=== PATIENT | male | born 1950 | race Caucasian/White ===

== ENCOUNTER 2021-11-30 19:30 | Emergency (ER) | payer MEDICARE, MEDICAID ==
[~2021-11-30 19:30] MED LIST: AMARYL 2MG TABLE2 MG PO; CARDIZEM CD120 MG PO; COUMADIN5 MG PO; COUMADIN7.5 MG PO; GLUCOPHAGE1000 MG PO; GLUCOSE4 GM PO; IPRAT-ALBUT 0.5-3 ML NEB; LANTUS SOL100 UNIT/1 SQ; LASIX40 MG PO; LIPITOR TAB 2020 MG PO; LOPRESSOR 25 MG25 MG PO; MEDROL4 MG PO; OMNICEF 300 MG300 MG PO; PREDNISONE20 MG PO; PRINIVIL10 MG PO; PROVENTIL HFA6.7 GM INH; SYMBICORT 160-1 INHA INH; VIBRAMYCIN100 MG PO
[2021-11-30 21:52] LABS: HEMOGLOBIN 12.7 gm/dl (14.0-17.5); RED BLOOD COUNT 4.53 M/UL (4.20-5.50); WHITE BLOOD COUNT 8.8 K/UL (4.5-11.0)
[2021-11-30 22:19] LABS: BUN/CREATININE RATIO 13 (0-10)
[2021-11-30] MEDS ORDERED: LASIX20 MG PO (23:17)
[2021-11-30] MEDS ORDERED: KLOR-CON M2020 MEQ PO (23:18)
== END 2021-11-30 23:21 | disposition home or self-care (01) ==
LOC: ER1 19:30
PROVIDERS: Physician Assistant
DX: I50.9 Heart failure, unspecified (principal); I48.91 Unspecified atrial fibrillation; E11.9 Type 2 diabetes mellitus without complications; Z20.822 Contact with and (suspected) exposure to COVID-19; Z79.01 Long term (current) use of anticoagulants; Z79.4 Long term (current) use of insulin; Z79.84 Long term (current) use of oral hypoglycemic drugs; Z87.891 Personal history of nicotine dependence
CPT/HCPCS: 36600; 71045; 80053; 82550; 82553; 82803; 83874; 83880; 84484; 85025; 99285; U0002